=== PATIENT | female | born 1975 | race Caucasian/White ===

== ENCOUNTER 2020-11-16 04:38 | Inpatient (IN) | payer OTHER ==
[2020-11-11 13:52] VITALS: BMI 38.6
[2020-11-16] MEDS ORDERED: BUPIVACAINE HCL/PF 0.5% (5MG/ML) 10 ML VIAL ONE (08:21)
[2020-11-16] MEDS ORDERED: BUPIVACAINE LIPOSOME/PF (EXPAREL) 266 MG/20 ML VIAL ONE (08:21)
[2020-11-16] MEDS ORDERED: SODIUM CHLORIDE 0.9% P/F 10 ML VIAL IJ ONE (08:22)
[2020-11-16] MEDS ORDERED: MIDAZOLAM HCL 2 MG/2 ML SINGLE DOSE VIAL ONE ×2 (08:22)
[2020-11-16] MEDS ORDERED: ceFAZolin SODIUM 1 GM VIAL ONE ×2 (08:55→17:20)
[2020-11-16] MEDS ORDERED: CEFAZOLIN 2 GM in DEXTROSE 5%-WATER - 100 ML IVPB ONE (10:00)
[2020-11-16] MEDS ORDERED: fentaNYL CITRATE 250 MCG/5 ML VIAL ONE (10:21)
[2020-11-16] MEDS ORDERED: PROPOFOL 20 ML ONE ×2 (10:21)
[2020-11-16] MEDS ORDERED: ROCURONIUM BROMIDE 50 MG/5 ML SYRINGE ONE ×3 (10:21→12:04)
[2020-11-16] MEDS ORDERED: ceFAZolin SODIUM 1 GM VIAL IVPB ONE (10:50)
[2020-11-16] MEDS ORDERED: ONDANSETRON 4 MG/2 ML VIAL IVPUSH PRN ×2 (11:41→12:49)
[2020-11-16] MEDS ORDERED: NEOSTIGMINE METHYLSULFATE 0.5 MG/ML - 10 ML MDV ONE (12:23)
[2020-11-16] MEDS ORDERED: SIMETHICONE 80 MG TAB.CHEW (FP) PO PRN (12:49)
[2020-11-16] MEDS ORDERED: DOCUSATE SODIUM 100 MG CAPSULE (FP) PO PRN (12:49)
[2020-11-16] MEDS ORDERED: oxyCODONE HCL 5 MG TABLET PO PRN (12:49)
[2020-11-16] MEDS ORDERED: BISACODYL 5 MG TABLET.DR (FP) PO PRN (12:49)
[2020-11-16] MEDS ORDERED: ACETAMINOPHEN 325 MG TABLET (FP) PO PRN (12:49)
[2020-11-16] MEDS ORDERED: HYDROmorphone HCl 2 MG/ML VIAL ONE ×2 (13:52→17:55)
[2020-11-16] MEDS: HYDROmorphone HCl 2 MG/ML VIAL IVPUSH SCH ×2 (13:55→14:15)
[2020-11-16] MEDS ORDERED: HYDROmorphone HCl 2 MG/ML VIAL IVPUSH PRN (14:27)
[2020-11-16] MEDS ORDERED: LORazepam 2 MG/ML SDV VIAL ONE (14:34)
[2020-11-16] MEDS ORDERED: LORazepam 2 MG/ML SDV VIAL IVPUSH ONE (15:15)
[2020-11-16] MEDS: LACTATED RINGERS SOLUTION 1,000 ML IV SCH (16:25)
[2020-11-16] MEDS ORDERED: HYDROmorphone HCl 2 MG/ML VIAL IVPUSH ONE (16:28)
[2020-11-16] MEDS: CEFAZOLIN 1 GM in DEXTROSE 5%-WATER - 1 GM/50 ML IVPB IVPB SCH (17:40)
[2020-11-16 17:54] LABS: HEMATOCRIT 33.8 % (32.4-45.2); HEMOGLOBIN 10.8 GM/dL (10.7-15.3); MCH 24.7 pg (25.7-33.7); MCHC 32.1 g/dl (32.0-36.0); MEAN CELL VOLUME 77.2 fl (80-96); MEAN PLT VOLUME 7.3 fl (7.5-11.1); PLATELET COUNT 290 10^3/uL (134-434); RBC 4.38 M/mm3 (3.60-5.2); RDW 21.2 % (11.6-15.6); WHITE BLOOD COUNT 17.7 K/mm3 (4.0-10.0)
[2020-11-16 18:31] LABS: CALCIUM 8.2 mg/dL (8.5-10.1)
[2020-11-16 18:32] LABS: BLOOD UREA NITROGEN 20.9 mg/dL (7-18)
[2020-11-16] MEDS: IBUPROFEN 800 MG/8 ML IJ IVPB PRN (20:45)
[2020-11-17] MEDS ORDERED: DEXTROSE 5%-WATER - 50 ML IVPB ONE ×2 (01:02→09:50)
[2020-11-17] MEDS ORDERED: ceFAZolin SODIUM 1 GM VIAL ONE ×2 (01:02→09:50)
[2020-11-17] MEDS: CEFAZOLIN 1 GM in DEXTROSE 5%-WATER - 1 GM/50 ML IVPB IVPB SCH ×2 (01:04→10:20)
[2020-11-17] MEDS: IBUPROFEN 800 MG/8 ML IJ IVPB PRN (05:50)
[2020-11-17 08:57] LABS: HEMATOCRIT 31.8 % (32.4-45.2); HEMOGLOBIN 10.4 GM/dL (10.7-15.3); MCH 25.2 pg (25.7-33.7); MCHC 32.8 g/dl (32.0-36.0); MEAN CELL VOLUME 76.8 fl (80-96); MEAN PLT VOLUME 7.5 fl (7.5-11.1); PLATELET COUNT 269 10^3/uL (134-434); RBC 4.13 M/mm3 (3.60-5.2); RDW 20.5 % (11.6-15.6); WHITE BLOOD COUNT 12.8 K/mm3 (4.0-10.0)
[2020-11-17 09:25] LABS: BLOOD UREA NITROGEN 17.6 mg/dL (7-18); CALCIUM 7.8 mg/dL (8.5-10.1)
[2020-11-17 09:29] LABS: CREATININE 0.8 mg/dL (0.55-1.3)
[2020-11-17] MEDS: amLODIPine BESYLATE 5 MG TABLET (FP) PO SCH (10:20)
[2020-11-17] MEDS: MULTIVITAMINS (DAILY MVI) TABLET (FP) PO SCH (10:20)
[2020-11-17] MEDS: FERROUS SO4 325 MG TABLET (FP) PO SCH (10:20)
[2020-11-17] MEDS: oxyCODONE HCL 5 MG TABLET PO PRN ×3 (10:20→19:57)
[2020-11-17] MEDS: ENOXAPARIN NA (PORCINE) 40 MG/0.4 ML DISP.SYRIN SQ SCH (11:05)
[2020-11-17] MEDS: LACTATED RINGERS SOLUTION 1,000 ML IV SCH ×2 (12:20→14:34)
[2020-11-17] MEDS ORDERED: HYDROmorphone HCl 2 MG/ML VIAL IVPB PRN (12:25)
[2020-11-17] MEDS ORDERED: IBUPROFEN 400 MG TABLET (FP) PO PRN (19:29)
[2020-11-18] MEDS: oxyCODONE HCL 5 MG TABLET PO PRN ×3 (01:07→10:26)
[2020-11-18] MEDS: ENOXAPARIN NA (PORCINE) 40 MG/0.4 ML DISP.SYRIN SQ SCH (09:55)
[2020-11-18] MEDS: FERROUS SO4 325 MG TABLET (FP) PO SCH (10:25)
[2020-11-18] MEDS: MULTIVITAMINS (DAILY MVI) TABLET (FP) PO SCH (10:25)
[2020-11-18] MEDS: amLODIPine BESYLATE 5 MG TABLET (FP) PO SCH (10:25)
[2020-11-18 11:44] VITALS: BP 123/65; PULSE 82; TEMP 98.4
[2020-11-18 11:59] LABS: HEMATOCRIT 30.9 % (32.4-45.2); HEMOGLOBIN 9.9 GM/dL (10.7-15.3); MCH 24.8 pg (25.7-33.7); MCHC 32.1 g/dl (32.0-36.0); MEAN CELL VOLUME 77.2 fl (80-96); MEAN PLT VOLUME 7.4 fl (7.5-11.1); PLATELET COUNT 279 10^3/uL (134-434); RBC 4.01 M/mm3 (3.60-5.2); RDW 21.3 % (11.6-15.6); WHITE BLOOD COUNT 12.9 K/mm3 (4.0-10.0)
== END 2020-11-18 12:37 | disposition home or self-care (01) | DRG 519 ==
LOC: J2C 04:38 → EDSTATUS 10:00 → J6S 18:33
PROVIDERS: ADMIT Obstetrics & Gynecology; ATTEND Obstetrics & Gynecology
PROC: 0UB10ZZ Excision of Left Ovary, Open Approach (ICD-10-PCS; 2020-11-16)
PROC: 0UT70ZZ Resection of Bilateral Fallopian Tubes, Open Approach (ICD-10-PCS; 2020-11-16)
PROC: 0UT90ZZ Resection of Uterus, Open Approach (ICD-10-PCS; principal; 2020-11-16 10:00)
DX: D25.9 Leiomyoma of uterus, unspecified (principal); D25.1 Intramural leiomyoma of uterus; N83.202 Unspecified ovarian cyst, left side; N92.0 Excessive and frequent menstruation with regular cycle
CPT/HCPCS: 36415; 36430; 36511; 80048; 81025; 85027; 86850; 86900; 86901; 86922; 88304-TC; 88307-TC; 94760; P9038; P9058